=== PATIENT | male | born 1975 | race Caucasian/White ===

== ENCOUNTER → 2018-09-22 08:39 | Outpatient (CLI) | payer OTHER, SELFPAY ==
--- NOTE | 2018-09-22 08:43 | MR_ITS ---
MR elbow RT wo con Ordering Physician: Kj Villa MD Patient Age: 43 years: Male HISTORY: ITS.REASON: evaluate right distal bicep tear Patient injured elbow one week ago heard pop. Pain is at the ulnar aspect of elbow TECHNIQUE: Multiplanar multisequence imaging on 1.5 [facility]. COMPARISON :Negative Right elbow 3 view plain film 09/14/2018 FINDINGS . High-grade distal biceps tendon tear.. Beginning proximally there is edema posterior aspect of the distal biceps muscle. Edema becoming more pronounced just distal to this point. Pronounced edema and fluid surrounding the myotendinous junction. With Edema within tracks along the biceps tendon. Complete tear/ high-grade distal biceps tendon tear evident with with up to 4-4.5 cm length cm area segment where we do not see well-defined tendon reflecting defect in the torn tendon. Some images suggest subtle undulating residual tendon in this area but is difficult to define. There is edema adjacent to the biceps tendon attachment upon the proximal radius.. No avulsion fracture nor abnormal bone edema at the biceps tendon attachment. The brachioradialis tendon is normal and well-defined. Low signal as it leads to the proximal ulna. There is edema surrounding the superficial tissues overlying medial aspect medial epicondyles I believe the medial collateral ligament & common flexor tendon are intact. Period of the axial images it is difficult to confirm the posterior bundle of the ulnar collateral complex is intact but I believe it is most likely. The coronal views appears satisfactory otherwise the remainder of the ulnar collateral ligament. Posteriorly at the elbow There is some minimal hypertrophic changes about the margins proximal olecranon at the proximal ulna at the posterior elbow joint.. I believe the medial collateral ligaments are intact with difficult confirm the posterior bundle is fully intact. Mild focal joint fluid posteriorly this overlies the region of the medial epicondyles and ulnar nerve . Question some possible subtle edema ulnar nerve slight increased T2 water weighted signal at the generous ulnar nerve. Equivocal but noted No osseous fractures or osseous findings.. No radial head is intact. Anterior fat pad appears normal as does the posterior fat pad on the sagittal view. . Upper normal signal at the posterior elbow joint. Minor hypertrophic margins at the margins of the olecranon at posterior joint also noted. IMPRESSION 1. Distal Biceps Tendon Tear High-grade tear, involves at least the distal 4 cm distal biceps tendon . Also note edema and minimal muscle tear involving the posterior aspect of the distal biceps muscle. Edema surrounds the myotendinous junction and tracks along along the entire biceps tendon distal to this point. 2. Other minimal observations in text ... Note Focal fluid collection seen overlying the medial epicondyles with upper normal signal ulnar nerve in this ... Medial epicondyle itself appears intact and overall I believe the medial/ulnar collateral ligaments grossly intact
[2018-09-22 16:39] LABS: Basophils # 0.1 K/mm3 (0-0.2); Basophils % 0.8 % (0.1-2.0); Eosinophils # 0.2 K/mm3 (0.0-0.4); Eosinophils % 2.6 % (0.1-12.0); Hematocrit 49.8 % (42.0-52.0); Hemoglobin 17.2 g/dL (14.1-18.0); Lymphocytes % 26.4 % (10-50); Mean Corpuscular HGB Conc 34.6 g/dL (31.8-35.4); Mean Corpuscular Hemoglobin 31.4 pg (27.0-31.2); Mean Corpuscular Volume 90.6 fl (80-94); Mean Platelet Volume 7.2 fl (7.4-10.4); Monocytes # 0.7 K/mm3 (0.1-1.0); Monocytes % 8.4 % (1.7-9.3); Neutrophils # 4.8 K/mm3 (1.8-7.8); Neutrophils % 61.8 % (37.0-80.0); Platelet Count 360 K/mm3 (142-424); Red Blood Count 5.49 M/mm3 (4.60-6.20); Red Cell Distribution Width 12.6 % (11.5-17.5); White Blood Count 7.7 K/mm3 (4.8-10.8)
[2018-09-22 17:15] LABS: Anion Gap 16.1 mEq/L (5-15); Blood Urea Nitrogen 9 mg/dL (7-18); Carbon Dioxide 28 mmol/L (21.0-32.0); Chloride 99 mmol/L (98-107); Creatinine,Serum 1.06 mg/dL (0.70-1.30); Estimated Glomerular Filt Rate 76 ml/min (>60); GFR (African American) 91 ML/MIN (>60); Glucose 88 mg/dL (74-106); Potassium 4.1 mmoL/L (3.5-5.1); Sodium 139 mmol/L (136-145)
== END ==
PROVIDERS: PCP Family Medicine; Visit Provider Orthopaedic Surgery
DX: Z01.818 Encounter for other preprocedural examination (principal); S46.212A Strain of muscle, fascia and tendon of other parts of biceps, left arm, initial encounter
CPT/HCPCS: 36415; 73221; 80048; 85025; 93005

== ENCOUNTER 2019-01-13 09:30 | Outpatient (RCR) | payer OTHER, SELFPAY | END 2019-01-13 09:35 | disposition home or self-care (01) | LOC: OT 09:30 | PROVIDERS: Visit Provider Orthopaedic Surgery | DX: S46.211D Strain of muscle, fascia and tendon of other parts of biceps, right arm, subsequent encounter (principal) | CPT/HCPCS: 97110; 97140; 97165 ==

== ENCOUNTER → 2019-01-13 13:52 | Outpatient (CLI) | payer OTHER, SELFPAY ==
--- NOTE | 2019-01-13 13:56 | XR_ITS ---
PROCEDURE: XR WRIST RT MIN 3V CLINICAL INDICATION: right wrist pain COMPARISON: None TECHNIQUE: Three views FINDINGS: no fracture or dislocation. No lytic or blastic change or significant arthritic change IMPRESSION: Negative right wrist Dictated by: Cesar Villalta MD 01/13/2019 14:31 Signed by: <Electronically signed by Cesar Villalta MD in [place]> 01/13/2019 14:31
--- NOTE | 2019-01-13 13:56 | XR_ITS ---
PROCEDURE: XR ELBOW RT MIN 3V CLINICAL INDICATION: sp RT bicep tendon repair, dos 09/24/18 COMPARISON: 09/22/2018, 09/14/2018 TECHNIQUE: AP,Oblique and Lateral Views. FINDINGS: S/p bicipital tendon repair. A small ton all is noted at the radial tuberosity with a metallic clip in this region. There is a small irregular opacity overlying the lateral and anterior aspect of the defect within the proximal radius and may represent a plastic surgical device. Please correlate with surgical history. There is normal alignment. IMPRESSION: S/p bicipital tendon repair as described above Dictated by: Cesar Villalta MD 01/13/2019 14:34 Signed by: <Electronically signed by Cesar Villalta MD in [facility]> 01/13/2019 14:34
== END ==
PROVIDERS: PCP Emergency Medicine; Visit Provider Orthopaedic Surgery
DX: S46.211A Strain of muscle, fascia and tendon of other parts of biceps, right arm, initial encounter (principal); Z09 Encounter for follow-up examination after completed treatment for conditions other than malignant neoplasm; M25.531 Pain in right wrist
CPT/HCPCS: 73080; 73110

== ENCOUNTER 2019-01-13 14:07 | Outpatient (RCR) | payer OTHER, SELFPAY | END 2019-01-13 14:10 | disposition home or self-care (01) | LOC: OT 14:07 | PROVIDERS: Visit Provider Orthopaedic Surgery | DX: M25.531 Pain in right wrist (principal) | CPT/HCPCS: 97763 ==

== ENCOUNTER → 2019-03-24 13:03 | Outpatient (CLI) | payer OTHER, SELFPAY ==
--- NOTE | 2019-03-24 13:06 | XR_ITS ---
PROCEDURE: XR WRIST RT MIN 3V CLINICAL INDICATION: right wrist pain Right wrist pain COMPARISON: XR WRIST RT MIN 3V from 01/13/2019 FINDINGS: No fracture, dislocation, lytic change, or blastic change evident. No significant degenerative change IMPRESSION: No acute findings. Dictated by: Cesar Villalta MD 03/24/2019 16:51 Electronically signed by Cesar Villalta MD in [place] 03/24/2019 16:51
--- NOTE | 2019-03-24 13:06 | XR_ITS ---
PROCEDURE: XR ELBOW RT MIN 3V CLINICAL INDICATION: sp RT bicep tendon repair Follow-up biceps tendon repair COMPARISON: ELBOWCMRT XR elbow RT min 3V from 09/14/2018 ELBOWLMRT XR elbow RT 2V from 09/24/2018 XR ELBOW RT MIN 3V from 01/13/2019 FINDINGS: No change status post biceps tendon repair with a small tunnel at the proximal shaft of the radius with a small metallic buttress along the medial aspect of the tunnel. Good alignment. No acute fracture or dislocation. The joint spaces are well-preserved. No significant degenerative/arthritic changes. No erosive changes evident. Other findings:None. IMPRESSION: No change status post biceps tendon repair with good alignment Dictated by: Cesar Villalta MD 03/24/2019 16:52 Electronically signed by Cesar Villalta MD in [place] 03/24/2019 16:52
== END ==
PROVIDERS: PCP Emergency Medicine; Visit Provider Orthopaedic Surgery
DX: S46.219A Strain of muscle, fascia and tendon of other parts of biceps, unspecified arm, initial encounter (principal); M25.531 Pain in right wrist; Z09 Encounter for follow-up examination after completed treatment for conditions other than malignant neoplasm
CPT/HCPCS: 73080; 73110